=== PATIENT | female | born 1950 | race African-American/Black ===

== ENCOUNTER 2018-11-12 13:11 | Emergency (ER) | payer MEDICARE ==
[~2018-11-12] VITALS: Ht 160 cm; Wt 61.0 kg
[~2018-11-12 13:11] MED LIST: BENA20TA10 PO
[2018-11-12 16:45] VITALS: BP 126/67
== END 2018-11-12 17:00 | disposition home or self-care (01) ==
LOC: ER 13:11
DX: M94.0 Chondrocostal junction syndrome [Tietze] (principal); E11.9 Type 2 diabetes mellitus without complications; I10 Essential (primary) hypertension
CPT/HCPCS: 36415; 71045; 84484; 93005; 99284